=== PATIENT | female | born 1995 | race Two or more races ===

== ENCOUNTER 2019-04-27 19:15 | Emergency (ER) | payer OTHER ==
--- OUTSIDE RECORDS SUMMARY | 2019-04-27 19:23 | XMS REPORT | Continuity of Care Document ---
:1995 Author Organization [facility] Address [address] [place] [address] Phone Care Team Providers Name Role Phone Dee Morel NP Unavailable Unavailable Allergies, Adverse Reactions, Alerts Substance Reaction Status No Known Allergies Active Medications Medication Instructions Dosage Effective Dates Status Comments (start - stop) Bactrim DS 800 take 1 tablet by - Active mg-160 mg tablet oral route every 12 hours for 3 days Flagyl 500 mg take 1 tablet by - Active tablet mouth twice a day for 7 days Diflucan 150 mg take 1 tablet by - Active tablet oral route once at completion of antibiotics Mirena 20 mcg/24 hr Insert IU with - Active (5 years) paracervical block intrauterine device Bactrim DS 800 take 1 tablet by 1.00 tablet - No Longer mg-160 mg tablet oral route every Active 12 hours Problems Condition Effective Dates (start - Clinical Status Comments stop) Acute cystitis with hematuria Encntr screen for infections w sexl mode of transmiss Encounter for routine checking of intrauterine contracep dev Acute vaginitis Other specified follicular disorders Human immunodeficiency virus [HIV] - counseling Encntr screen for infections w sexl mode of transmiss Encounter for routine checking of intrauterine contracep dev Candidiasis of vulva and vagina Hematuria, unspecified Encntr screen for infections w sexl mode of transmiss Encounter for routine checking of intrauterine contracep dev Candidiasis of vulva and vagina Human immunodeficiency virus [HIV] - counseling Encntr screen for infections w sexl mode of transmiss Acute cystitis with hematuria Acute vaginitis Encounter for routine checking of intrauterine contracep dev Encounter for screening for human - immunodeficiency virus Encounter for routine checking of intrauterine contracep dev Encntr screen for infections w sexl mode of transmiss Acute vaginitis Encounter for test, result negative Encounter for insertion of intrauterine contraceptive device Encounter for oth general cnsl and advice on contraception Encounter for prescription of emergency contraception Encntr screen for infections w sexl mode of transmiss Candidiasis of vulva and vagina Chlamydia Chlamydia HIV, Screening HIV Counseling STI Screening Yeast-vulvovaginal EC Counseling Or RX LABORATORY EXAM NOS Procedures Procedure Date URINALYSIS, DIP NONAUTO W/O SCOPE N.GONORRHOEAE, DNA, AMP PROB CHYLMD DNA, AMP PROBE TRICHOMONAS VAGIN, DIR PROBE N.GONORRHOEAE, DNA, PHARYNGEAL CHYLMD, DNA, PHARYNGEAL WET SMEAR ASSAY OF BODY FLUID-PH OFFICE/OUTPATIENT VISIT, EST OTHER Medical Services VAGINITIS RX UTI TREATMENT Contraceptive User Experience Researcher.Svc. Other User Experience Researcher.Svc. STI PREVENTIVE COUNSELING, Under 8 Minutes Results Test Name Date and Time Measure Units Reference Range Abnormal Flag Status Comments Panel Description: Wet Mount Final Wet Mount 14:46:27 Hyphae/Viridiana: noBudding yeast: Final noTrich: noClue cells: yes (>=20%)WBCs: yes (many)Amine/Whiff test: negativepH: 5.5 Panel Description: C trach DNA XXX Ql PCR Final Swab CT - Negative N Final Performed by:
CDD Vaginal 00:00:00 ([id number])

Panel Description: Amplified GC - Vaginal Final Swab GC - Negative N Final : Vaginal 00:00:00 No

Performed by:
CDD ([id number])

Panel Description: Urine Dipstick Final Urine Dipstick 13:49:16 Color: yellowGlucose: Final negativeKetones: negativeProtein: traceNitrite: positiveLeukocytes: traceBlood: moderatepH: 5.0 Advance Directives Directive Yes / No Effective Date File Name No information Encounters Encounter Practice Location Reason(s) Diagnoses Date Provider Providers Description For Visit Copied on Encounter OFFICE/OUTPA [facility] Vaginal Acute cystitis Maria Teresa Referring TIENT VISIT, [facility] [place] Discharge with 4-201 Dee. 620 Provider: [facility] a/o Odor hematuriaEncntr [address], [place] (chief screen for [place], [place] Maria Teresa J, [address] [place] [address], [facility] [place]) [place] [address], [place]. [address] Urinary sexl mode of tel:[phone] St, [place], [place], [place], Sympt[place] [address] [place], [address]. [place], (chief ter for routine tel:[phone], complaint) checking of [id number] [place] intrauterine tel:[phone] contracep [phone] devAcute vaginitisOther specified follicular disordersHuman immunodeficienc y virus [HIV] counseling [facility] Sep-0 Maria Teresa [facility] [place] 8-201 Dee. 620 [place] [address], [place], [place], [facility], 620 [address], [place]. [address] tel:[phone] St, [place], [address] [place], [id number], [place] tel:[phone] [facility] Encntr screen Sep-0 Maria Teresa Referring [facility] [place] for infections 2-201 Dee. 620 Provider: [facility] w sexl mode of [address], [place] transmissEncoun [place], [place], Maria Teresa J, 620 [facility], [facility] ter for routine [address], [place]. [address] [address] [place] checking of tel:[phone] St, [place], [place], [place], [place]ine [address] [place], [address]. [place], contracep tel:[phone], devCandidiasis [address]386 [place] of vulva and tel:[phone] vaginaHematuria [phone] , unspecified [facility] Encntr screen Maria Teresa Referring [facility] [place] for infections 7- Dee. 620 Provider: [place] w sexl mode of [address], [place] transmissEncoun [place], Maria Teresa J, [address] [place], [address] for routine [address], [place]. [address] [address] [place] checking of tel:[phone] St, [place], St, [place], [place] [address] [place], [address]. [place], contracep tel:[phone], devCandidiasis [id number] [place] of vulva and tel:[phone] vagina [phone] [facility] Human Tre-1 [place] Referring [facility] [place] immunodeficienc [facility] Provider: Michelle y virus [HIV] 8 [address]. [address] [place] counselingEncnt [address], [place] [facility], 620 r screen for [place], [place], [place] [address], [place], sexl mode of tel:[phone] [address], [place], transmissAcute [address] [place], [place], [id number], [place] [address]. [place] hematuriaAcute tel:[phone] tel:[phone] for routine checking of intrauterine contracep devEncounter for screening for human immunodeficienc y virus [facility] Encounter for Morgan Brumfield. [facility] [place] routine 1 [address] checking of [address], [place], [place], [address], [facility], 620 contracep [place]. [address], [place], screen for [place], infections w [id number], sexl mode of [place] transmissAcute tel:[phone] vaginitis [phone] [facility] Encounter for Ivan Referring [facility] [place] test, 0-201 [place]. 620 W Provider: [place] result [address], [place] negativeEncount [place], [place], [place], 620 [place] [address]. , [address] insertion of tel:[phone] [address], St, [place], intrauterine [address] [place], [place], contraceptive [address]. [id number], device tel:[phone] [place] 0187[address] tel:[phone] [facility] En[facility] for [facility] Fletcher. [facility] [address] [facility] and advice [address], [place], [place], [address]. [facility], 620 contraceptionEn tel:[phone] [place] [address] [address], [place], prescription of [place], emergency [id number], contraceptionEn [place] cntr screen for tel:[phone] infections w [phone] sexl mode of transmissCandid iasis of vulva and vagina [facility] Chlamydia Sep-[address] [employer] Sophy. 620 W Provider: [place] [address], NURSE [place], [facility]. [facility], [facility] [address]. [address] tel:[phone] St, [place], [address] [place], [id number], [place] tel:[phone] [facility] Chlamydia Sep-[address] [facility] . 620 W Provider: [place] [address], NURSE [place], [place], [facility]. [facility], [facility] [address]. [address] tel:[phone] St, [place], [address] [place], [id number], [place] tel:[phone] [facility] HIV, Lamont Fletcher. [facility] ScreeningHIV [address] [facility] Counseling [address], [place], [place], [address]. [facility], 620 tel:[phone], [place], [place], [id number], [place] tel:[phone] [facility] STI Lamont Fletcher. [facility] ScreeningYeast- [address] [facility] vulvovaginalEC [address], [place], [place], [address]. [facility], 620 RX tel:[phone], [place], [place], [id number], [place] tel:[phone] [facility] LABORATORY EXAM [facility] [place] NOS 2-201 [place]. [address], [place], [place], [facility], 620 [address]. [address] tel:[phone] St, [place], [address] [place], [id number], tel:[phone] Family History Family Member Diagnosis Age At Onset Father No history of Myocardial infarction Brother No history of Stroke Mother No history of Stroke Brother No history of Myocardial infarction Sister No history of Stroke Father No history of Stroke Sister No history of Myocardial infarction Mother No history of Myocardial infarction Immunizations Vaccine Date Status Comments No information Payers Payer name Insurance type Covered republican ID Authorization(s) Total Care Todays Options [facility] CI [id number] Social History Type Description Quantity Date Captured Comments Alcohol Use Details Unknown Caffeine Use Details Unknown Tobacco Use Status Current non-smoker Smoking Status Never smoker Non-Smoking Tobacco : No Details Available : No Details Available 2018 Use Details Sex Female Vital Signs Date / Height Weight BMI Pulse Blood Temperature Respiratory Body Head BMI Pulse Inhaled Time: Rate Pressure Rate Surface Circumference percentile Ox Ox Area 97.80 F -2018 1:49 PM Chief Complaint And Reason For Visit Most recent encounter only, dated '03/16/2019 13:30'. Vaginal Discharge a /o Odor (chief complaint)Urinary Symptoms (chief complaint). Description: Date of initial symptoms: 03/02/2019. There is no radiation. Location is suprapubic. The patient describes it as cramping and urgency. It occurs constantly. The problem is with no change. Additional information: LMP: 2018. Reason For Referral Reason For Referral No information Plan Of Treatment Date Type Action Status No information History Of Present Illness Encounter Date Complaint History Of Present Illness Urinary Symptoms Date of initial symptoms: 03/02/2019. There is no radiation. Location is suprapubic. The patient describes it as cramping and urgency. It occurs constantly. The problem is with no change. Additional information: LMP: 02/26/2019. Functional Status Date Functional Assessment No information Medications Administered Medication Instructions Dosage Effective Dates (start - stop) Status Comments No information Instructions Date Instruction Additional Information No information Assessments Type Assessment Date assessment Acute cystitis with hematuria assessment Encntr screen for infections w sexl mode of transmiss assessment Encounter for routine checking of intrauterine contracep dev assessment Acute vaginitis assessment Other specified follicular disorders assessment Human immunodeficiency virus [HIV] counseling Goals Health Concern Goal Type Priority Status Date No information Medical Equipment Description Device [place] Device Identifier Effective Dates (start - stop ) Status No information Mental Status Date Cognitive Assessment Normal Orientation Health Concerns Observation Date No information Concern Status Date No information
[2019-04-27 19:35] VITALS: BP 128/76
[2019-04-27] MEDS ORDERED: Acetaminophen TAB* 325 MG PO ONE (20:00)
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
== END 2019-04-27 21:12 | disposition home or self-care (01) ==
LOC: UCEAST 19:15
DX: S16.1XXA Strain of muscle, fascia and tendon at neck level, initial encounter (principal); R51 Headache; V43.52XA Car driver injured in collision with other type car in traffic accident, initial encounter; Y92.9 Unspecified place or not applicable
CPT/HCPCS: 70450; 99201; A9270-GY; G0463